=== PATIENT | female | born 1970 | race African-American/Black ===

== ENCOUNTER 2024-08-27 18:23 | Emergency (ER) | payer OTHER ==
[~2024-08-27] VITALS: Ht 165.1 cm; Wt 90.9 kg
[2024-08-27 18:26] VITALS: TEMP 97.9
[2024-08-27] MEDS ORDERED: AMLO-258 PO (18:31)
[2024-08-27] MEDS: SODIUM CHLORIDE 0.9% 1,000 ML IV ONE (18:56)
[2024-08-27] MEDS: ONDANSETRON HCL 4 MG/2 ML VIAL IVP ONE (18:56)
[2024-08-27 19:11] LABS: BASOPHILS % (AUTO) 0.5 % (0.0-2.0); CALCIUM, TOTAL 8.9 mg/dL (8.8-10.5); CREATININE 1.24 mg/dL (0.60-1.30); EOSINOPHILS % (AUTO) 1.4 % (1.0-6.0); HEMATOCRIT 44.1 % (36-46); HEMOGLOBIN 14.2 g/dL (12.0-16.0); LYMPHOCYTES # (AUTO) 4.8 K/uL (1.0-4.8); LYMPHOCYTES % (AUTO) 51.3 % (22.0-44.0); MEAN CORPUSCULAR HEMOGLOBIN 25.9 pg (26.0-34.0); MEAN CORPUSCULAR HGB CONC 32.2 G/dL (31.0-37.0); MEAN CORPUSCULAR VOLUME 81 fL (80-100); MONOCYTES # (AUTO) 0.9 K/uL (0.1-1.0); MONOCYTES % (AUTO) 9.3 % (2.0-9.0); NEUTROPHILS # (AUTO) 3.5 K/uL (1.8-7.7); NEUTROPHILS % (AUTO) 37.5 % (40.0-70.0); PLATELET COUNT (AUTO) 335 K/uL (150-450); POTASSIUM 3.1 mmol/L (3.5-5.1); RED BLOOD CELL COUNT(AUTO) 5.47 MIL/uL (4.00-5.20); RED CELL DISTRIBUTION WIDTH 15.8 % (11.5-14.5); WHITE BLOOD COUNT (AUTO) 9.3 K/uL (4.5-11.0)
[2024-08-27 19:17] LABS: ALBUMIN 3.1 g/dL (3.4-5.0); BILIRUBIN,DIRECT 0.1 mg/dL (0.00-0.20); BILIRUBIN,TOTAL 0.6 mg/dL (0.1-1.0); TOTAL PROTEIN, SERUM 7.7 g/dL (6.4-8.2)
[2024-08-27 19:22] LABS: TROPONIN I-HIGH SENSITIVITY Less Than 4 ng/L (<51)
[2024-08-27] MEDS: FentaNYL CITRATE PF 100 MCG/2 ML VIAL IVP ONE (19:36)
[2024-08-27] MEDS: POTASSIUM CHLORIDE 10% 40 MEQ/30 ML LIQUID UDCUP PO ONE (20:01)
[2024-08-27 20:38] LABS: APPEARANCE,URINE CLEAR (CLEAR); BILIRUBIN,URINE NEGATIVE (NEGATIVE); COLOR,URINE COLORLESS (YELLOW); GLUCOSE, URINE (UA) NEGATIVE (NEGATIVE); KETONES,URINE NEGATIVE (NEGATIVE); LEUKOCYTE ESTERASE ,URINE NEGATIVE (NEGATIVE); NITRATE,URINE NEGATIVE (NEGATIVE); OCCULT BLOOD,URINE NEGATIVE (NEGATIVE); PROTEIN,URINE NEGATIVE (NEGATIVE); SPECIFIC GRAVITIY, URINE 1.012 (1.003-1.030); UROBILINOGEN,URINE <=1.0 mg/dL (<=1.0)
[2024-08-27] MEDS: PROCHLORPERAZINE EDISYLATE 5 MG/ML 2 ML VIAL IVP ONE (21:11)
[2024-08-27] MEDS: DiphenhydrAMINE HCL 50 MG/ML VIAL IVP ONE (21:12)
[2024-08-27] MEDS ORDERED: ONDA-104 PO (22:30)
[2024-08-27] MEDS ORDERED: PERCT PO (22:30)
[2024-08-27] MEDS: OxyCODONE HCL/ACETAMINOPHEN 5-325 MG TABLET PO ONE (22:50)
[2024-08-27 23:47] VITALS: BP 157/94; PULSE 85; RESP 24; O2SAT 96
== END 2024-08-28 04:48 | disposition home or self-care (01) ==
LOC: EMS 18:23
DX: K80.20 Calculus of gallbladder without cholecystitis without obstruction (principal); R10.11 Right upper quadrant pain; R11.2 Nausea with vomiting, unspecified; I10 Essential (primary) hypertension; Z98.51 Tubal ligation status; Z79.899 Other long term (current) drug therapy
CPT/HCPCS: 99285; 96374; 96375; 76700; 96361; 80048; 80076; 81003; 83690; 84484; 85025; 36415; J1200; J3010; J2405; J0780; J7030